=== PATIENT | female | born 1995 | race Two or more races ===

== ENCOUNTER 2017-07-28 09:32 | Emergency (ER) | payer SELFPAY ==
[~2017-07-28] VITALS: Ht 160 cm; Wt 79.8 kg
[~2017-07-28 09:32] MED LIST: ADVIL200 MG PO; ALLERGY MED; FLONASE16 G1; IBUPROFEN; LORATADINE10 M2; NO HOME MEDS; NORCO 5/325 TAB1 TAB PO; PREDNISONE20 M1 PO; PROVENTIL HFA6.7 G1 IH; PROVENTIL HFA6.7 G1 INH; QVAR8.7 G1 IH; SINGULAIR10 M1 PO; ULTRAM50 M1 PO; XYZAL5 MG PO; ZITHROMAX250 MG PO; ZYRTEC10 M3 PO; ZYRTEC10 M7 PO
[2017-07-28 10:37] LABS: PREGNANCY-SERUM NEGATIVE (NEGATIVE)
[2017-07-28 10:41] LABS: CREATININE 0.87 mg/dl (0.50-1.10); eGFR VALUE FOR BLACK >90 mL/Min
[2017-07-28] MEDS ORDERED: PREDNISONE10 M1 PO (12:21)
== END 2017-07-28 12:28 ==
LOC: EDMED 09:32
PROVIDERS: Emergency Medicine
DX: R07.89 Other chest pain (principal); J45.901 Unspecified asthma with (acute) exacerbation
CPT/HCPCS: A9540; A9558; J7512